=== PATIENT | male | born 1975 | race Caucasian/White ===

== ENCOUNTER 2018-11-11 04:08 | Observation (INO) ==
[2018-11-11 04:50] LABS: Bilirubin,Urine Negative (Negative); Blood,Urine Small (Negative); Clarity,Urine Clear (Clear); Color,Urine Yellow (Yellow); Glucose,Urine (UA) Normal (Normal); Ketones,Urine Negative (Negative); Leukocyte Esterase,Urine Trace (Negative); Nitrite,Urine Negative (Negative); PH,Urine 5.5 pH Units (5.0-8.0); Protein,Urine Negative (Neg-Trace); Specific Gravity,Urine 1.025 (1.010-1.025); Urobilinogen,Urine Normal (Normal)
[2018-11-11 04:56] LABS: Bacteria,Urine None Seen per hpf (None-Few); Hyaline Casts,Urine None Seen per lpf (None-Few); Squamous Epithelial Cell,Urine Few per lpf (None-Few)
[2018-11-11 05:04] LABS: Basophils # 0.1 K/mcL (0.0-0.2); Basophils % 0.4 %; Eosinophils # 0.2 K/mcL (0.0-0.6); Eosinophils % 1.3 %; Hematocrit 46.3 % (37.5-50.1); Hemoglobin 15.4 g/dL (12.9-16.9); Immature Granulocytes % 0.4 % (0-4); Lymphocytes # 1.7 K/mcL (0.6-4.6); Lymphocytes % 11.6 %; Mean Corpuscular HGB Conc 33.3 g/dL (31.6-35.5); Mean Corpuscular Volume 87.2 fL (83.0-100.0); Mean Platelet Volume 10.3 fL (9.4-12.4); Monocytes # 1.5 K/mcL (0.0-1.3); Monocytes % 10.4 %; Neutrophils # 10.8 K/mcL (1.6-8.9); Platelet Count 263 K/mcL (140-400); Red Blood Count 5.31 M/mcL (4.19-5.50); Red Cell Distribution Width 12.2 % (11.5-14.5); Segmented Neutrophils % 75.9 %; White Blood Count 14.2 K/mcL (4.3-11.1)
[2018-11-11 05:23] LABS: Albumin 4.7 g/dL (3.5-5.7); Bilirubin,Direct 0.1 mg/dL (0.0-0.2); Bilirubin,Indirect 0.3 mg/dL (0.0-1.2); Bilirubin,Total 0.4 mg/dL (0.3-1.0); Calcium 9.9 mg/dL (8.6-10.3); Globulin 2.4 g/dL (2.4-3.5); Potassium 3.9 mEq/L (3.5-5.1); Total Protein 7.1 g/dL (6.4-8.9)
[2018-11-11] MEDS ORDERED: Ondansetron 4 MG/2 ML VIAL IVP ONE (05:44)
[2018-11-11] MEDS ORDERED: 0.9 % Sodium Chloride 1,000 ML IV ONE (05:44)
[2018-11-11] MEDS ORDERED: *HR* HYDROmorphone (PF) 1 MG/ML SYRINGE IVP ONE (05:45)
[2018-11-11] MEDS ORDERED: cefTRIAXone 1,000 MG in 0.9 % Sodium Chloride Mini Bag 100 ML IVPB ONE (06:35)
--- NOTE | 2018-11-11 06:39 | Emergency Department Note ---
Disposition Clinical Impression: Pyelonephritis, Kidney stone on left side Acute renal failure Qualifiers: Acute renal failure type: unspecified Qualified Code(s): N17.9 - Acute kidney failure, unspecified Disposition: Admitted As Inpatient Time of Disposition: 07:00 General Adult HPI - General Chief complaint: ED Abdominal Pain Stated complaint: Abd Pain Time Seen by Provider: 11/11/18 06:04 Source: patient Limitations: no limitations Nursing Notes Reviewed: Yes Vital Signs Reviewed: Yes - History of Present Illness HPI Narrative: 43-year-old male presents with abdominal pain. Patient stated he had intermittent back pain and dysuria for a week. He suddenly have a worsening pain around 11 PM last night. The pain was in left abdomen and radiates to back and left testicle. Associate with nausea and vomiting. No chills and a fever. Onset (ago): week(s) (1) Location: abdomen Radiation: back Pain Scale: 8 - Related Data Allergies Allergy/AdvReac Type Severity Reaction Status Date / Time morphine Allergy Hives Verified 11/11/18 05:25 Constitutional: Denies: fever, chills Eyes: Denies: eye pain ENT ED: Denies: ear pain Cardiovascular: Denies: chest pain Respiratory: Denies: cough Gastrointestinal: Reports: abdominal pain, nausea, vomiting Genitourinary: Reports: dysuria Musculoskeletal: Reports: back pain Integumentary: Denies: rash Neurological: Denies: headache Psychiatric: Denies: anxiety Endocrine: Denies: fatigue Hematological/Lymphatic: Denies: easy bleeding Allergic/Immunologic: Denies: facial swelling Past Medical History - Past Medical History Medical history: Reports: hypertension, other - Social History Smoking Status: Never smoker Smokeless Tobacco Status: Yes Alcohol use: Reports: none Drug use: Reports: none Physical Exam - General Limitations: no limitations General appearance: alert, in no apparent distress - Head Head exam: atraumatic - Eye Eye exam: Present: normal appearance - ENT ENT exam: normal exam - Neck Neck exam: Present: normal inspection - Chest Chest inspection: Present: normal inspection - Respiratory Respiratory exam: Present: normal lung sounds bilaterally - Cardiovascular Cardiovascular exam: Present: regular rate - Abdominal Exam Abdominal exam: Present: soft, tenderness Abdominal tenderness: Present: LLQ - Extremities Exam Extremities exam: Present: normal inspection - Back Exam Back exam: Present: normal inspection - Neurological Exam Neurological exam: Present: alert, oriented X3 - Psychiatric Psychiatric exam: Present: normal affect - Skin Skin exam: Present: warm, intact Course Vital Signs Temperature 98.6 F 11/11/18 04:21 Pulse Rate 92 11/11/18 04:21 Respiratory Rate 20 11/11/18 04:21 Blood Pressure 149/98 11/11/18 04:21 O2 Sat by Pulse Oximetry 97 11/11/18 04:21 Temperature 98.5 F 11/11/18 08:08 Pulse Rate 80 11/11/18 08:08 Respiratory Rate 16 11/11/18 08:08 Blood Pressure 140/98 11/11/18 08:08 O2 Sat by Pulse Oximetry 98 11/11/18 08:08 Oxygen Delivery Oxygen Delivery Room Air Medical Decision Making - MDM Narrative Medical decision making narrative: 43-year-old male presents with acute abdominal pain in left side associate with nausea and vomiting. Patient reported dysuria 1 week prior. No chills and a fever. Physical exam left abdomen tender to palpation. Labs white cell 14, creatinine 1.[address] indicated 3 mm of kidney stone in left side, moderate inflammation in perinepheric fat. Impression: Pyelonephritis, acute renal failure and kidney stone. Patient will be admitted to hospital for IV antibiotics and IV fluids. Spoke with the hospitalist. Patient is accepted. Dr. Rosales has seen the patient and agrees the above plan. Spoke with Urologist . He will see the patient in hospital this morning. - Lab Data Lab results reviewed: Yes I reviewed the patient's lab results. Result diagrams: 11/11/18 04:51 11/11/18 04:51 Lab Results 11/11/18 11/11/18 11/11/18 Range/Units 04:18 04:51 04:51 WBC 14.2 H (4.3-11.1) K/mcL RBC 5.31 (4.19-5.50) M/mcL Hgb 15.4 (12.9-16.9) g/dL Hct 46.3 (37.5-50.1) % MCV 87.2 (83.0-100.0) fL MCH 29.0 (28.0-33.3) pg MCHC 33.3 (31.6-35.5) g/dL RDW 12.2 (11.5-14.5) % Plt Count 263 (140-400) K/mcL MPV 10.3 (9.4-12.4) fL Immature Gran % 0.4 (0-4) % Seg Neutrophils % 75.9 % Lymphocytes % 11.6 % Monocytes % 10.4 % Eosinophils % 1.3 % Basophils % 0.4 % Neutrophils # 10.8 H (1.6-8.9) K/mcL Lymphocytes # 1.7 (0.6-4.6) K/mcL Monocytes # 1.5 H (0.0-1.3) K/mcL Eosinophils # 0.2 (0.0-0.6) K/mcL Basophils # 0.1 (0.0-0.2) K/mcL Sodium 137 (136-145) mEq/L Potassium 3.9 (3.5-5.1) mEq/L Chloride 104 (98-107) mEq/L Carbon Dioxide 25 (23-29) mEq/L BUN 24 H (6-20) mg/dL Creatinine 1.77 H (0.70-1.30) mg/dL Est GFR ( Amer) 51 L (> 60) Est GFR (Non-Af Amer) 42 L (> 60) BUN/Creatinine Ratio 14 (6-26) Glucose 119 H (70-105) mg/dL Calculated Osmolality 289 (280-300) Lactic Acid (0.5-2.2) mmol/L Calcium 9.9 (8.6-10.3) mg/dL Total Bilirubin 0.4 (0.3-1.0) mg/dL Direct Bilirubin 0.1 (0.0-0.2) mg/dL Indirect Bilirubin 0.3 (0.0-1.2) mg/dL AST 17 (13-39) Units/L ALT 24 (7-52) Units/L Alkaline Phosphatase 92 (34-104) Units/L Serum Total Protein 7.1 (6.4-8.9) g/dL Albumin 4.7 (3.5-5.7) g/dL Globulin 2.4 (2.4-3.5) g/dL Albumin/Globulin Ratio 2.0 (1.1-2.2) Amylase 66 (29-103) Units/L Lipase 79 (11-82) Units/L Urine Color Yellow (Yellow) Urine Clarity Clear (Clear) Urine pH 5.5 (5.0-8.0) pH Units Ur Specific [place] 1.025 (1.010-1.025) Urine Protein Negative (Neg-Trace) mg/dL Urine Glucose (UA) Normal (Normal) mg/dL Urine Ketones Negative (Negative) mg/dL Urine Blood Small H (Negative) Urine Nitrite Negative (Negative) Urine Bilirubin Negative (Negative) Urine Urobilinogen Normal (Normal) mg/dL Ur Leukocyte Esterase Trace H (Negative) Urine Microscopic RBC 5-15 H (0-3) per hpf Urine Microscopic WBC 3-5 H (0-3) per hpf Ur Squamous Epith Cells Few (None-Few) per lpf Urine Bacteria None Seen (None-Few) per hpf Hyaline Casts None Seen (None-Few) per lpf Ur Culture Indicated? YES A (NO) 11/11/18 Range/Units 07:45 WBC (4.3-11.1) K/mcL RBC (4.19-5.50) M/mcL Hgb (12.9-16.9) g/dL Hct (37.5-50.1) % MCV (83.0-100.0) fL MCH (28.0-33.3) pg MCHC (31.6-35.5) g/dL RDW (11.5-14.5) % Plt Count (140-400) K/mcL MPV (9.4-12.4) fL Immature Gran % (0-4) % Seg Neutrophils % % Lymphocytes % % Monocytes % % Eosinophils % % Basophils % % Neutrophils # (1.6-8.9) K/mcL Lymphocytes # (0.6-4.6) K/mcL Monocytes # (0.0-1.3) K/mcL Eosinophils # (0.0-0.6) K/mcL Basophils # (0.0-0.2) K/mcL Sodium (136-145) mEq/L Potassium (3.5-5.1) mEq/L Chloride (98-107) mEq/L Carbon Dioxide (23-29) mEq/L BUN (6-20) mg/dL Creatinine (0.70-1.30) mg/dL Est GFR ( Amer) (> 60) Est GFR (Non-Af Amer) (> 60) BUN/Creatinine Ratio (6-26) Glucose (70-105) mg/dL Calculated Osmolality (280-300) Lactic Acid 0.8 (0.5-2.2) mmol/L Calcium (8.6-10.3) mg/dL Total Bilirubin (0.3-1.0) mg/dL Direct Bilirubin (0.0-0.2) mg/dL Indirect Bilirubin (0.0-1.2) mg/dL AST (13-39) Units/L ALT (7-52) Units/L Alkaline Phosphatase (34-104) Units/L Serum Total Protein (6.4-8.9) g/dL Albumin (3.5-5.7) g/dL Globulin (2.4-3.5) g/dL Albumin/Globulin Ratio (1.1-2.2) Amylase (29-103) Units/L Lipase (11-82) Units/L Urine Color (Yellow) Urine Clarity (Clear) Urine pH (5.0-8.0) pH Units Ur Specific T[place] (1.010-1.025) Urine Protein (Neg-Trace) mg/dL Urine Glucose (UA) (Normal) mg/dL Urine Ketones (Negative) mg/dL Urine Blood (Negative) Urine Nitrite (Negative) Urine Bilirubin (Negative) Urine Urobilinogen (Normal) mg/dL Ur Leukocyte Esterase (Negative) Urine Microscopic RBC (0-3) per hpf Urine Microscopic WBC (0-3) per hpf Ur Squamous Epith Cells (None-Few) per lpf Urine Bacteria (None-Few) per hpf Hyaline Casts (None-Few) per lpf Ur Culture Indicated? (NO) - Radiology Data Radiology results reviewed: Yes I reviewed the patient's radiology results. FINDINGS: Lower Chest: Normal aeration of the lung bases. Heart is normal in size. No pericardial effusion. Organs: Liver, pancreas, spleen, bilateral adrenal glands are unremarkable. 3 mm obstructive stone in the distal left ureter near the ureterovesical junction leads to mild left hydronephrosis. Moderate inflammation of the left perinephric fat. Additional punctate stone in the left kidney. No right nephrolithiasis or hydronephrosis. GI/Bowel: Stomach, small and large bowel loops are grossly unremarkable. The appendix is normal. Pelvis: Urinary bladder is unremarkable. No stones in the urinary bladder. No lymphadenopathy. No soft tissue masses or abnormal fluid collections. Peritoneum/Retroperitoneum: No free intraperitoneal fluid or air. No abdominal aortic aneurysm. No retroperitoneal lymphadenopathy. Bones/Soft Tissues: No lytic or blastic lesions in all visualized osseous structures. Very small left inguinal hernia contains non inflamed fat. CT/CT abd pelvis wo no iv no oral IMPRESSION: 3 mm obstructive stone in the distal left ureter near the ureterovesical junction leads to mild left hydronephrosis. Moderate inflammation of the left perinephric fat. Additional punctate stone in the left kidney. D/ / Cristel Olivares MD / Cristel Olivares MD Interpreting Provider: Cristel Olivares MD
[2018-11-11] MEDS ORDERED: Naloxone 0.4 MG/ML INJ IVP PRN ×2 (07:35→17:27)
[2018-11-11] MEDS ORDERED: traMADol 50 MG TABLET PO PRN ×2 (07:35→17:27)
[2018-11-11] MEDS ORDERED: 0.9 % Sodium Chloride 1,000 ML IVC ONE (07:37)
[2018-11-11] MEDS ORDERED: D5% in Water 1,000 ML IVC PRN ×2 (07:39→17:27)
[2018-11-11] MEDS ORDERED: *HR* Dextrose 50 % in Water (Syg) 50 ML SYRINGE IVP PRN ×2 (07:39→17:27)
[2018-11-11] MEDS ORDERED: Dextrose Gel 15 GM/37.5 ML TUBE PO PRN ×4 (07:39→17:27)
[2018-11-11] MEDS ORDERED: D5% in 0.45% NACL 1,000 ML IVC SCH (07:45)
--- NOTE | 2018-11-11 08:25 | Internal Med History&Physical ---
Date of Encounter: 11/11/18 Time of Encounter: 08:20 Internal Medicine - H&P: HPI Chief complaint: back pain Admitted From: Home Plans for Post Hospital Care: Home History of present illness: Mr. Maciel is a 43 year old male PMH of Depression, contusion on August 2018 associated with compression fracture of T9-T10, HTN, Chronic pancreatitis and G6PD deficiency. Patient presented to the ED due to left lower back pain. Re ports for the past 8 days he has been feeling cold, clammy and weak. He felt like he had a UTI, because he has decreased urinary output, pain with urination and the urge to urinate with decreased urinary output. Stated that for the past couple of days he started having left lower quadrant abdominal pain radiating to his left testicle, Associated with nausea. And last night at around 4am he started vomiting. Report 2 episodes of non-bilious, non-bloody vomiting and decided to come to the ED. Patient was found to have an PARVIZ, UTI and obstructive uropathy. Admitted to the hospitalist team for management, and coordination of care. Past Med Surg Social Fam HX - Past Medical History Medical history: hypertension, other Additional medical history: pancreatitis - Social History Smoking Status: Never smoker Smokeless Tobacco Status: Yes Alcohol use: none Drug use: none Internal Medicine - H&P: Meds Allergy/AdvReac Type Severity Reaction Status Date / Time morphine Allergy Hives Verified 11/11/18 05:25 All Systems PM: A 10-system review of systems was performed and is negative for pertinent findings except as documented above in the HPI. - Constitutional Constitutional: chills, fatigue, fever(s) (subjective), malaise, weakness - EENT Eyes: no change in vision Nose, mouth and throat: no dental pain, no dry mouth, no mouth pain - Cardiovascular Cardiovascular ROS IM: no chest pain, no edema, no orthopnea, no palpitations, no paroxysmal nocturnal dyspnea - Respiratory Respiratory: no cough, no wheezing - Gastrointestinal Gastrointestinal: abdominal pain, nausea, vomiting - Genitourinary Genitourinary ROS male: dysuria, urinary frequency, urinary hesitancy, urinary urgency, no urinary incontinence - Musculoskeletal Musculoskeletal ROS IM: no atrophy, no numbness - Integumentary Integumentary IM: no erythema - Neurological Neurological ROS: no headache(s), no lack of coordination - Psychiatric Psychiatric: no anxiety, no hopelessness, no irritability - Endocrine Endocrine IM: no cold intolerance, no excessive sweating - Hematologic/Lymphatic Hematologic/Lymphatic: no lymphadenopathy - Allergic/Immunologic Allergic/Immunologic: no GI upset with certain foods - Constitutional Vitals: Temp Pulse Resp BP Pulse Ox 98.5 F 80 16 140/98 98 11/11/18 08:08 11/11/18 08:08 11/11/18 08:08 11/11/18 08:08 11/11/18 08:08 Exam: Vitals: Reviewed General: Alert and oriented x4. In mild distress due to back pain and testicular pain. Skin: Normal color, no rash, no lesions. HEENT: EOM, pupils equal, round and reactive. Cardiovascular: RRR, normal S1 & S2, no rubs, murmurs or gallops. Lungs: CTA b/l, no wheezes or crackles. Abdomen: Soft, non-tender, no rigidity. Extremities: No deformity, no edema or tenderness, no joint swelling or clubbing. Neurological: Normal cognition and motor skills. Rest of the physical exam is non contributory Internal Med - H&P Results - Labs CBC & Chem 7: 11/11/18 04:51 11/11/18 04:51 Labs: Short CBC 11/11/18 Range/Units 04:51 WBC 14.2 H (4.3-11.1) K/mcL Hgb 15.4 (12.9-16.9) g/dL Hct 46.3 (37.5-50.1) % Plt Count 263 (140-400) K/mcL Neutrophils # 10.8 H (1.6-8.9) K/mcL BMP 11/11/18 04:51 Sodium 137 Potassium 3.9 Chloride 104 Carbon Dioxide 25 BUN 24 H Creatinine 1.77 H Glucose 119 H Calcium 9.9 Liver Function 11/11/18 Range/Units 04:51 Total Bilirubin 0.4 (0.3-1.0) mg/dL Direct Bilirubin 0.1 (0.0-0.2) mg/dL AST 17 (13-39) Units/L ALT 24 (7-52) Units/L Alkaline Phosphatase 92 (34-104) Units/L Albumin 4.7 (3.5-5.7) g/dL Urine 11/11/18 Range/Units 04:18 Urine Color Yellow (Yellow) Urine Clarity Clear (Clear) Urine pH 5.5 (5.0-8.0) pH Units Ur Specific [place] 1.025 (1.010-1.025) Urine Protein Negative (Neg-Trace) mg/dL Urine Glucose (UA) Normal (Normal) mg/dL - Impressions ITS Impressions Abdomen/Pelvis CT 11/11/18 05:44 IMPRESSION: 3 mm obstructive stone in the distal left ureter near the ureterovesical junction leads to mild left hydronephrosis. Moderate inflammation of the left perinephric fat. Additional punctate stone in the left kidney. D/ / Cristel Olivares MD / Cristel Olivares MD Interpreting Provider: Cristel Olivares MD - Assessment and Plan (1) Kidney stone on left side Current Visit: Yes Status: Acute Assessment and plan: CT/CT abd pelvis wo no iv no oral IMPRESSION: 3 mm obstructive stone in the distal left ureter near the ureterovesical junction leads to mild left hydronephrosis. Moderate inflammation of the left perinephric fat. Additional punctate stone in the left kidney. Plan - urology consulted, recommendations appreciated - started on tamsulosin and cyclobenzaprine - Gentle IV hydration - NPO pending urology evaluation (2) PARVIZ (acute kidney injury) Current Visit: Yes Status: Acute Assessment and plan: lilkely due to 3 mm obstructive stone in the distal left ureter near the ureterovesical junction leads to mild left hydronephrosis. Plan of care as above. (3) HTN (hypertension) Current Visit: Yes Status: Chronic Assessment and plan: will resume patient's home medications when verified by the pharmacy Qualifiers: Hypertension type: unspecified Qualified Code(s): I10 - Essential (primary) hypertension (4) G6PD deficiency Current Visit: Yes Status: Chronic (5) Pyelonephritis Current Visit: Yes Status: Acute Assessment and plan: patient started on empiric IV antibiotics. Blood culture ordered. (6) UTI (urinary tract infection) Current Visit: Yes Status: Acute Assessment and plan: plan of care as above. Qualifiers: Urinary tract infection type: acute pyelonephritis Qualified Code(s): N10 - Acute pyelonephritis (7) DVT prophylaxis Current Visit: Yes Status: Acute Assessment and plan: intermittent pneumatic compression for DVT prophylaxis. - Time Spent With Patient Total time spent is greater than 50% in coordination of care (as documented) at patient's floor/unit and/or counseling patient: Greater than 35 minutes (50)
--- NOTE | 2018-11-11 10:12 | Urology - Consult Note ---
<Jaimie Gamino N - Last Filed: 11/11/18 10:53> Date of Encounter: 11/11/18 Time of Encounter: 09:50 - Assessment and Plan (1) Ureteral stone with hydronephrosis Current Visit: Yes Status: Acute Assessment and plan: Patient is a 43-year-old male who presents with a 3 mm left distal ureteral stone and hydronephrosis. Vital signs are currently stable and afebrile. Urine appears negative, but culture has been collected in the emergency department. White blood cell count elevated to 14.2. Serum creatinine elevated to 1.77. Patient has been placed on IV Rocephin. We discussed surgical risks and benefits, and patient verbalized understanding. He should signed consent, and he is prepared undergo a left ureteroscopic stone extraction with or without holmium laser lithotripsy, basket retrieval and left ureteral stent placement later this afternoon with . Patient will remain nothing by mouth. (2) PARVIZ (acute kidney injury) Current Visit: Yes Status: Acute Assessment and plan: Patient is a 43-year-old male who presents with acute kidney injury. Patient has an obstructing left distal ureteral stone with mild hydronephrosis. Serum creatinine is 1.77, but there are no prior renal function labs for comparison. Anticipate renal function improvement postoperatively. Urology CN:HPI Consult date: 11/11/18 Reason for consult Urology: Hydronephrosis (left ureteral stone) Requesting physician: Jarrell May History of present illness: Patient is a 43-year-old male who presents with a 3 mm left distal ureteral stone and hydronephrosis. Patient presented to the emergency department with an 8 day history of intermittent left flank pain, radiating to the left groin and testicle. Patient reports pain acutely worsened over the last 2 days and was accompanied with nausea and vomiting. Patient admits to intermittent chills and diaphoresis, but he denies any known fever or gross hematuria. Patient underwent a CT of the abdomen and pelvis revealing a 3 mm left distal ureteral stone and hydronephrosis. Patient reports this is his first renal stone. Patient has a significant family history of renal stones through his father. On my evaluation, patient is sitting upright in bed in no apparent distress, and he states pain is well-controlled. Past Med Surg Social Fam HX - Past Medical History Medical history: hypertension, other Additional medical history: pancreatitis - Past Surgical History Surgical History: non-contributory - Social History Smoking Status: Never smoker Smokeless Tobacco Status: Yes Alcohol use: none Drug use: none - Family History Father Hx Family Genitourinary Disorders: Yes (renal stones ) Medications and Allergies Cyclobenzaprine HCl 5 mg PO TID PRN 11/11/18 [History] HYDROcodone/Acet 7.5/325 mg [[place] 7.5-325 mg] 1 tab PO BID PRN 11/11/18 [History] Ibuprofen [Motrin] 800 mg PO DAILY PRN 11/11/18 [History] LORazepam [Ativan] 1 mg PO BID PRN 11/11/18 [History] Metoprolol [Lopressor] 25 mg PO BID 11/11/18 [History] Testosterone 1 appl TP DAILY 11/11/18 [History] Valacyclovir HCl [Valtrex] 2,000 mg PO BID PRN 11/11/18 [History] Allergy/AdvReac Type Severity Reaction Status Date / Time morphine Allergy Hives Verified 11/11/18 19:54 Review of Systems - Constitutional chills, no fever(s), no weakness - EENT Nose, mouth and throat: no dizziness, no headache(s) - Cardiovascular no chest pain, no diaphoresis, no dyspnea - Respiratory no cough, no dyspnea - Gastrointestinal abdominal pain, nausea, vomiting - Genitourinary difficulty urinating, dysuria, flank pain, testicular pain, urinary hesitancy, urinary urgency, no change in urinary stream, no hematuria, no urinary frequency, no urinary incontinence - Musculoskeletal back pain, no muscle weakness - Integumentary no erythema, no rash - Neurological no confusion, no syncope - Psychiatric no anxiety, no confusion - Hematologic/Lymphatic no easy bleeding, no easy bruising - Allergic/Immunologic no throat swelling, no wheezing Exam Initial Vital Signs Temp Pulse Resp BP Pulse Ox 98.6 F 92 20 149/98 97 11/11/18 04:21 11/11/18 04:21 11/11/18 04:21 11/11/18 04:21 11/11/18 04:21 - General physical appearance Present: well developed, no distress, no pain - Eyes Present: PERRL, normal ocular movement - ENT Present: normal nares, no hearing loss, no congestion - Neck Present: no masses, trachea midline, no lymphadenopathy - Respiratory Present: normal respiratory effort - Cardiovascular Cardiovascular exam IM: RRR - Abdomen Abdomen: Present: soft, non tender. Absent: distended - Genitourinary other (no CVAT) - Integumentary Present: no rash, no abnormal pigmentation - Neurologic Present: normal coordination - Musculoskeletal Present: other (normal posture ) Urology Results - Labs 11/11/18 04:51 11/11/18 04:51 Abnormal lab results WBC 14.2 K/mcL (4.3-11.1) H 11/11/18 04:51 Neutrophils # 10.8 K/mcL (1.6-8.9) H 11/11/18 04:51 Monocytes # 1.5 K/mcL (0.0-1.3) H 11/11/18 04:51 BUN 24 mg/dL (6-20) H 11/11/18 04:51 Creatinine 1.77 mg/dL (0.70-1.30) H 11/11/18 04:51 Est GFR ( Amer) 51 (> 60) L 11/11/18 04:51 Est GFR (Non-Af Amer) 42 (> 60) L 11/11/18 04:51 Glucose 119 mg/dL (70-105) H 11/11/18 04:51 Urine Blood Small (Negative) H 11/11/18 04:18 Ur Leukocyte Esterase Trace (Negative) H 11/11/18 04:18 Urine Microscopic RBC 5-15 per hpf (0-3) H 11/11/18 04:18 Urine Microscopic WBC 3-5 per hpf (0-3) H 11/11/18 04:18 Ur Culture Indicated? YES (NO) A 11/11/18 04:18 Diabetes panel 11/11/18 Range/Units 04:51 Sodium 137 (136-145) mEq/L Potassium 3.9 (3.5-5.1) mEq/L Chloride 104 (98-107) mEq/L Carbon Dioxide 25 (23-29) mEq/L BUN 24 H (6-20) mg/dL Creatinine 1.77 H (0.70-1.30) mg/dL Glucose 119 H (70-105) mg/dL Calcium 9.9 (8.6-10.3) mg/dL AST 17 (13-39) Units/L ALT 24 (7-52) Units/L Alkaline Phosphatase 92 (34-104) Units/L Albumin 4.7 (3.5-5.7) g/dL Calcium panel 11/11/18 Range/Units 04:51 Calcium 9.9 (8.6-10.3) mg/dL Albumin 4.7 (3.5-5.7) g/dL Pituitary panel 11/11/18 Range/Units 04:51 Sodium 137 (136-145) mEq/L Potassium 3.9 (3.5-5.1) mEq/L Chloride 104 (98-107) mEq/L Carbon Dioxide 25 (23-29) mEq/L BUN 24 H (6-20) mg/dL Creatinine 1.77 H (0.70-1.30) mg/dL Glucose 119 H (70-105) mg/dL Calcium 9.9 (8.6-10.3) mg/dL Adrenal panel 11/11/18 Range/Units 04:51 Sodium 137 (136-145) mEq/L Potassium 3.9 (3.5-5.1) mEq/L Chloride 104 (98-107) mEq/L Carbon Dioxide 25 (23-29) mEq/L BUN 24 H (6-20) mg/dL Creatinine 1.77 H (0.70-1.30) mg/dL Glucose 119 H (70-105) mg/dL Calcium 9.9 (8.6-10.3) mg/dL Total Bilirubin 0.4 (0.3-1.0) mg/dL AST 17 (13-39) Units/L ALT 24 (7-52) Units/L Alkaline Phosphatase 92 (34-104) Units/L Albumin 4.7 (3.5-5.7) g/dL All other labs normal. - Imaging CT scan - abdomen: report reviewed, image reviewed CT scan - pelvis: report reviewed, image reviewed Consult Discharge Plan - Plan Referrals: Diogo Gregg CNP [Primary Care Provider] - <Esteban Johnson - Last Filed: 11/12/18 07:53> Date of Encounter: 11/12/18 - Assessment and Plan (1) Ureteral stone with hydronephrosis Current Visit: Yes Status: Acute Assessment and plan: Patient seen and examined in the holding room prior to surgery. Agree with physician assistants assessment and plan. Patient was comfortable proceeding with the ureteroscopic stone extraction. He understood the indications for the procedure. We will keep the patient admitted overnight after the stone extraction and verify that his renal function and symptoms improve in the morning Exam Initial Vital Signs Temp Pulse Resp BP Pulse Ox 98.6 F 92 20 149/98 97 11/11/18 04:21 11/11/18 04:21 11/11/18 04:21 11/11/18 04:21 11/11/18 04:21 Urology Results - Labs 11/12/18 05:02 11/12/18 05:02 Abnormal lab results WBC 11.2 K/mcL (4.3-11.1) H 11/12/18 05:02 Neutrophils # 9.6 K/mcL (1.6-8.9) H 11/12/18 05:02 Monocytes # 1.5 K/mcL (0.0-1.3) H 11/11/18 04:51 Sodium 135 mEq/L (136-145) L 11/12/18 05:02 Carbon Dioxide 22 mEq/L (23-29) L 11/12/18 05:02 BUN 24 mg/dL (6-20) H 11/11/18 04:51 Creatinine 1.39 mg/dL (0.70-1.30) H 11/12/18 05:02 Est GFR ( Amer) 51 (> 60) L 11/11/18 04:51 Est GFR (Non-Af Amer) 56 (> 60) L 11/12/18 05:02 Glucose 153 mg/dL (70-105) H 11/12/18 05:02 POC Glucose 114 mg/dL (70-99) H 11/11/18 17:55 Urine Blood Small (Negative) H 11/11/18 04:18 Ur Leukocyte Esterase Trace (Negative) H 11/11/18 04:18 Urine Microscopic RBC 5-15 per hpf (0-3) H 11/11/18 04:18 Urine Microscopic WBC 3-5 per hpf (0-3) H 11/11/18 04:18 Ur Culture Indicated? YES (NO) A 11/11/18 04:18 Diabetes panel 11/12/18 Range/Units 05:02 Sodium 135 L (136-145) mEq/L Potassium 4.3 (3.5-5.1) mEq/L Chloride 105 (98-107) mEq/L Carbon Dioxide 22 L (23-29) mEq/L BUN 17 (6-20) mg/dL Creatinine 1.39 H (0.70-1.30) mg/dL Glucose 153 H (70-105) mg/dL Calcium 9.0 (8.6-10.3) mg/dL Calcium panel 11/12/18 Range/Units 05:02 Calcium 9.0 (8.6-10.3) mg/dL Phosphorus 3.7 (2.7-4.5) mg/dL Pituitary panel 11/12/18 Range/Units 05:02 Sodium 135 L (136-145) mEq/L Potassium 4.3 (3.5-5.1) mEq/L Chloride 105 (98-107) mEq/L Carbon Dioxide 22 L (23-29) mEq/L BUN 17 (6-20) mg/dL Creatinine 1.39 H (0.70-1.30) mg/dL Glucose 153 H (70-105) mg/dL Calcium 9.0 (8.6-10.3) mg/dL Adrenal panel 11/12/18 Range/Units 05:02 Sodium 135 L (136-145) mEq/L Potassium 4.3 (3.5-5.1) mEq/L Chloride 105 (98-107) mEq/L Carbon Dioxide 22 L (23-29) mEq/L BUN 17 (6-20) mg/dL Creatinine 1.39 H (0.70-1.30) mg/dL Glucose 153 H (70-105) mg/dL Calcium 9.0 (8.6-10.3) mg/dL All other labs normal.
[2018-11-11] MEDS ORDERED: Ondansetron 4 MG/2 ML VIAL IVP PRN ×2 (11:03→17:27)
[2018-11-11] MEDS ORDERED: Insulin LISPRO 300 UNITS/3 ML VIAL SQ SCH (12:00)
--- NOTE | 2018-11-11 15:24 | Anesthesia Evaluation PreOp ---
Date of Encounter: 11/11/18 Time of Encounter: 15:21 - Past History Planned Operation: Left USE Cardiac History: HTN Pulmonary History: Denies Any Significant HX ANIMAL KILLER History: Denies Any Significant HX Other Medical History: Other (pancreatitis) Anesthesia History: No Prior Anesthetic Complications, Past Anesthesia (GB) Alcohol Use: occasionally Drug use: none Medications and Allergies DULoxetine [Cymbalta] 30 mg PO BID 11/11/18 [History] LORazepam [Ativan] 1 mg PO BID PRN 11/11/18 [History] Metoprolol [Lopressor] 25 mg PO BID 11/11/18 [History] Testosterone [Androderm] 1 each TD DAILY 11/11/18 [History] Allergy/AdvReac Type Severity Reaction Status Date / Time morphine Allergy Hives Verified 11/11/18 05:25 - Meds/Allergy Pre-op Review Medications Reviewed: Yes Allergies Reviewed: Yes Anesthesia Results - Labs 11/11/18 04:51 11/11/18 04:51 Anesthesia Exam Vital Signs/O2 Sat, Most Current Temp Pulse Resp BP Pulse Ox 98.7 F 72 16 135/90 94 11/11/18 15:15 11/11/18 15:15 11/11/18 15:15 11/11/18 15:15 11/11/18 15:15 NPO (# of Hours): > 8 hrs Pain Scale: 0 Pain Scale Used: Numeric (1 - 10) - HEENT Pupil (Motor): Pupils equal, EOMI Mallampati: II Teeth: Normal Oral Opening: Greater than 3 - ANIMAL KILLER LOC: Oriented ANIMAL KILLER Motor: Normal RUE, Normal LUE, Normal RLE, Normal LLE, Normal Face ANIMAL KILLER Sensory: Normal: RUE, LUE, RLE, LLE, Face - Cardiac Rhythm: Regular Murmur: None JVD: No Carotid Bruit: No - Pulmonary Breath Sounds: bilateral Clear Respiratory Effort: Symmetrical Anesthesia Assess/Plan ASA Score: 2 Level of consciousness: Cooperative Anesthetic Plan: General Autologous Blood: Yes Monitoring Plan: Standard Monitors Recovery Plan: PACU
[2018-11-11] MEDS ORDERED: Isovue-300 50 ML VIAL ONE (15:41)
[2018-11-11] MEDS ORDERED: *HR* FentaNYL (PF) 100 MCG/2 ML VIAL ONE ×2 (15:43→16:30)
[2018-11-11] MEDS ORDERED: Lidocaine -MPF 2% 2 ML VIAL ONE ×2 (15:43→16:17)
[2018-11-11] MEDS ORDERED: *HR* Propofol 200 MG/20 ML VIAL IVP ONE ×2 (15:43→16:17)
[2018-11-11] MEDS ORDERED: Dexamethasone 4 MG/ML VIAL ONE ×2 (15:44→16:17)
[2018-11-11] MEDS ORDERED: Ondansetron 4 MG/2 ML VIAL ONE ×2 (15:44→16:17)
[2018-11-11] MEDS ORDERED: *HR* Midazolam HCl 5 MG/5 ML VIAL IVP ONE (15:45)
[2018-11-11] MEDS ORDERED: *HR* Rocuronium Bromide 50 MG/5 ML VIAL ONE (16:17)
--- NOTE | 2018-11-11 17:03 | Operative Note ---
Date of procedure: 11/11/18 Pre-op diagnosis: left ureteral stone Post-op diagnosis: same Procedure: left ureteroscopic stone extraction left JJ stent placement Anesthesia: GETA Surgeon: Esteban Johnson Was there an desk assistant present: No Estimated blood loss (cc): 0 Specimen: stone for analysis Condition: stable Disposition: PACU Procedure in Detail: PROCEDURE IN DETAIL: Patient was taken back to the operating room, positioned supine on the operating table. Anesthesia was applied without complication. They were moved into dorsal lithotomy. Careful attention was maintained to cushion all pressure points for patient's safety. They were prepped and draped in sterile fashion. Time-out was performed with the proper patient and procedure. A 17.5-[place] rigid cystoscope was inserted into the bladder without difficulty. Systematic examination of bladder revealed no abnormalities. The left ureteral orifice was cannulated using a 5-[place] ureteral Catheter and a zip wire was passed under fluoroscopy. An 8-10 dilator was then placed over the zip wire to passively dilate the ureteral orifice. A semi-rigid ureteroscope was carefully inserted into the bladder and guided into the ureteral oriface. At that point, the stone was quite impacted but I was able to maniulate its position and basket extract the stone with a 1.9 tipless basket All stone in the ureter was removed. A 4.8 x 26 ureteral stent was placed over the zip wire under fluoroscopy without complication. the stone was sent for stone analysis. The string was left attached to the stent and secured to the patient for easy removal in approximately 72 hours
[2018-11-11] MEDS ORDERED: *HR* LORazepam 1 MG TABLET PO PRN (17:27)
[2018-11-11] MEDS ORDERED: Hyoscyamine SL 0.125 MG TAB.SUBL SL PRN (17:27)
[2018-11-11] MEDS: Insulin LISPRO 300 UNITS/3 ML VIAL SQ SCH ×2 (17:58→23:00)
[2018-11-11] MEDS: *HR* OxyCODONE/APAP 5/325 TABLET PO PRN ×2 (19:02→23:02)
--- NOTE | 2018-11-11 21:06 | Anesthesia Evaluation Post Op ---
Date of Encounter: 11/11/18 Time of Encounter: 17:10 - Vital Signs Vital Signs: Vital Signs/O2 Sat, Most Current Temp Pulse Resp BP Pulse Ox 97.8 F 88 18 136/96 97 11/11/18 18:57 11/11/18 18:57 11/11/18 18:57 11/11/18 18:57 11/11/18 18:57 - Lungs Lungs: Clear Ascult./Percussion - Airway Airway: Non-obstructed - Cardiovascular Baseline Rhythm - Mental Status Mental Status: Baseline Status - Pain Pain Scale: 0 - Nausea Vomiting Nausea Vomiting: Not Present - Hydration Hydration: Tolerates oral liquids - Discharge PostOp Status: Transfer Patient to floor
[2018-11-12] MEDS: *HR* OxyCODONE/APAP 5/325 TABLET PO PRN ×2 (03:07→09:12)
[2018-11-12 05:26] LABS: Basophils % 0.1 %; Hematocrit 42.9 % (37.5-50.1); Hemoglobin 14.1 g/dL (12.9-16.9); Immature Granulocytes % 0.4 % (0-4); Lymphocytes # 0.9 K/mcL (0.6-4.6); Lymphocytes % 8.2 %; Mean Corpuscular HGB Conc 32.9 g/dL (31.6-35.5); Mean Corpuscular Hemoglobin 28.9 pg (28.0-33.3); Mean Corpuscular Volume 87.9 fL (83.0-100.0); Mean Platelet Volume 10.6 fL (9.4-12.4); Monocytes # 0.6 K/mcL (0.0-1.3); Monocytes % 5.3 %; Neutrophils # 9.6 K/mcL (1.6-8.9); Platelet Count 218 K/mcL (140-400); Red Blood Count 4.88 M/mcL (4.19-5.50); White Blood Count 11.2 K/mcL (4.3-11.1)
[2018-11-12 05:49] LABS: BUN/Creatinine Ratio 12 (6-26); Blood Urea Nitrogen 17 mg/dL (6-20); Carbon Dioxide 22 mEq/L (23-29); Chloride 105 mEq/L (98-107); Glucose 153 mg/dL (70-105); Magnesium 1.8 mg/dL (1.6-2.6); Osmolality,Calculated 285 (280-300); Phosphorous 3.7 mg/dL (2.7-4.5); Potassium 4.3 mEq/L (3.5-5.1); Sodium 135 mEq/L (136-145); eGFR For African Americans > 60 (> 60); eGFR For Non-African Americans 56 (> 60)
--- NOTE | 2018-11-12 08:44 | Urology Progress Note ---
<Jaimie Gamino N - Last Filed: 11/12/18 08:40> Date of Encounter: 11/12/18 Time of Encounter: 08:10 - Assessment and Plan (1) Ureteral stone with hydronephrosis Status: Acute Assessment and plan: Patient is a 43-year-old male who presents one day status post left ureteroscopic stone extraction and left ureteral stent placement. Vital signs are stable and afebrile. Patient is recovering very well postoperatively. Renal function is much improved today. We discussed postoperative expectations with indwelling ureteral stent. Patient is aware he will need to self remove ureteral stent on postoperative day #3. Patient is okay to be discharged from urologic standpoint. Recommend 2-3 days of pain medicine as well as medication for bladder spasm such as oxybutynin or Levsin. Patient will follow-up with postoperatively within 2-4 weeks of discharge. (2) PARVIZ (acute kidney injury) Status: Acute Progress Note Subjective: no new complaints, feels better Narrative: POD #1. Patient seen and examined sitting upright in bed in no apparent distress. Patient is tolerating normal diet without nausea or vomiting. P atient is voiding well without difficulty. Patient admits to some stent discomfort, but overall he feels much improved. Objective Initial Vital Signs Temp Pulse Resp BP Pulse Ox 98.6 F 92 20 149/98 97 11/11/18 04:21 11/11/18 04:21 11/11/18 04:21 11/11/18 04:21 11/11/18 04:21 - General physical appearance Present: well developed, no distress, no pain - Respiratory Present: normal expansion, normal respiratory effort - Abdomen Present: soft, non tender. Absent: distended - Integumentary Present: no rash, no abnormal pigmentation - Musculoskeletal Present: normal posture - Psychiatric Present: oriented to time, oriented to person, oriented to place, speech is normal, memory intact - Labs 11/12/18 05:02 11/12/18 05:02 Diabetes panel 11/12/18 Range/Units 05:02 Sodium 135 L (136-145) mEq/L Potassium 4.3 (3.5-5.1) mEq/L Chloride 105 (98-107) mEq/L Carbon Dioxide 22 L (23-29) mEq/L BUN 17 (6-20) mg/dL Creatinine 1.39 H (0.70-1.30) mg/dL Glucose 153 H (70-105) mg/dL Calcium 9.0 (8.6-10.3) mg/dL Calcium panel 11/12/18 Range/Units 05:02 Calcium 9.0 (8.6-10.3) mg/dL Phosphorus 3.7 (2.7-4.5) mg/dL Pituitary panel 11/12/18 Range/Units 05:02 Sodium 135 L (136-145) mEq/L Potassium 4.3 (3.5-5.1) mEq/L Chloride 105 (98-107) mEq/L Carbon Dioxide 22 L (23-29) mEq/L BUN 17 (6-20) mg/dL Creatinine 1.39 H (0.70-1.30) mg/dL Glucose 153 H (70-105) mg/dL Calcium 9.0 (8.6-10.3) mg/dL Adrenal panel 11/12/18 Range/Units 05:02 Sodium 135 L (136-145) mEq/L Potassium 4.3 (3.5-5.1) mEq/L Chloride 105 (98-107) mEq/L Carbon Dioxide 22 L (23-29) mEq/L BUN 17 (6-20) mg/dL Creatinine 1.39 H (0.70-1.30) mg/dL Glucose 153 H (70-105) mg/dL Calcium 9.0 (8.6-10.3) mg/dL - VTE Documentation of Mechanical Device: Intermittent pneumatic compression device Consult Discharge Plan - Plan Instructions: Hydrocodone/Acetaminophen (By mouth), Hyoscyamine (By mouth), Cefdinir (By mouth) Referrals: Diogo Gregg CNP [Primary Care Provider] - 11/19/18 8:00 am Esteban Johnson MD [Partnered Physician] - (An appointment has been requested. The office will contact you at home to schedule an appointment. ) Prescriptions: Hyoscyamine SL [Levsin Sl] 0.125 mg SL Q4HR PRN 4 Days #15 tab.subl PRN Reason: Spasms HYDROcodone/Acet 7.5/325 mg [[place] 7.5-325 mg] 1 tab PO BID PRN 5 Days #10 tablet PRN Reason: Pain Cefdinir [Omnicef] 300 mg PO BID 3 Days #6 capsule <Esteban Johnson - Last Filed: 11/14/18 08:01> Date of Encounter: 11/14/18 - Assessment and Plan (1) Ureteral stone with hydronephrosis Status: Acute Assessment and plan: agree with assessment and plan. I did no personally evaluate the patient on this day Objective Initial Vital Signs Temp Pulse Resp BP Pulse Ox 98.6 F 92 20 149/98 97 11/11/18 04:21 11/11/18 04:21 11/11/18 04:21 11/11/18 04:21 11/11/18 04:21 - Labs 11/12/18 05:02 11/12/18 05:02
[2018-11-12] MEDS ORDERED: cefTRIAXone 1,000 MG in Water for inj. (sterile) 10 ML IVP SCH ×2 (09:00)
[2018-11-12 11:16] VITALS: BP 138/84
--- NOTE | 2018-11-12 11:38 | Discharge Summary ---
- NOTES TO OUTPATIENT PROVIDER Notes to Outpatient Provider: Have a repeat BMP within a week of hospital dischage. creat 1.39 at dc from 1.77 Orders not resulted at time of discharge: Pending orders 11/11/18 04:18 Culture,Urine [RM] Stat 11/11/18 07:45 Culture,Blood [BC] Stat 11/11/18 16:12 XR KUB [XR] Routine 11/11/18 16:45 Surgical Pathology [PTH] Routine Date of Encounter: 11/12/18 Time of Encounter: 11:33 - Discharge Diagnosis (1) Kidney stone on left side Priority: Primary Status: Resolved (2) PARVIZ (acute kidney injury) Priority: Secondary Status: Resolved (3) HTN (hypertension) Priority: Secondary Status: Chronic Qualifiers: Hypertension type: unspecified Qualified Code(s): I10 - Essential (primary) hypertension (4) G6PD deficiency Priority: Secondary Status: Chronic (5) Pyelonephritis Priority: Secondary Status: Suspected (6) UTI (urinary tract infection) Priority: Secondary Status: Acute Qualifiers: Urinary tract infection type: acute pyelonephritis Qualified Code(s): N10 - Acute pyelonephritis (7) DVT prophylaxis Priority: Secondary Status: Acute Hospital course: Mr. Maciel is a 43 year old male PMH of Depression, contusion on August 2018 associated with compression fracture of T9-T10, HTN, Chronic pancreatitis and G6PD deficiency. Patient presented to the ED due to left lower back pain. Patient admitted to the hospital due to PARVIZ, UTI and obstructive uropathy CT/CT abd pelvis wo no iv no oral IMPRESSION: 3 mm obstructive stone in the distal left ureter near the ureterovesical junction leads to mild left hydronephrosis. Moderate inflammation of the left perinephric fat. Urology consulted. Patient underwent left ureteroscopic stone extraction, left JJ stent placement. Patient clinically stable to be discharged home, recommended to follow-up with your neurologist within a week of hospital discharge. - Time Spent with Patient Total time spent providing and/or coordinating discharge services: Time spent: Greater than 30 minutes (35) - Discharge Medications Prescriptions: New Hyoscyamine SL [Levsin Sl] 0.125 mg SL Q4HR PRN 4 Days #15 tab.subl PRN Reason: Spasms Cefdinir [Omnicef] 300 mg PO BID 3 Days #6 capsule Continued Metoprolol [Lopressor] 25 mg PO BID LORazepam [Ativan] 1 mg PO BID PRN PRN Reason: Anxiety Testosterone 1 appl TP DAILY Valacyclovir HCl [Valtrex] 2,000 mg PO BID PRN PRN Reason: BLISTERS Ibuprofen [Motrin] 800 mg PO DAILY PRN PRN Reason: Pain Cyclobenzaprine HCl 5 mg PO TID PRN PRN Reason: Muscle Spasm HYDROcodone/Acet 7.5/325 mg [[place] 7.5-325 mg] 1 tab PO BID PRN 5 Days #10 tablet PRN Reason: Pain Home Medications: Cyclobenzaprine HCl 5 mg PO TID PRN 11/11/18 [History] Ibuprofen [Motrin] 800 mg PO DAILY PRN 11/11/18 [History] LORazepam [Ativan] 1 mg PO BID PRN 11/11/18 [History] Metoprolol [Lopressor] 25 mg PO BID 11/11/18 [History] Testosterone 1 appl TP DAILY 11/11/18 [History] Valacyclovir HCl [Valtrex] 2,000 mg PO BID PRN 11/11/18 [History] Cefdinir [Omnicef] 300 mg PO BID 3 Days #6 capsule 11/12/18 [Rx] HYDROcodone/Acet 7.5/325 mg [[place] 7.5-325 mg] 1 tab PO BID PRN 5 Days #10 tablet 11/12/18 [Rx] Hyoscyamine SL [Levsin Sl] 0.125 mg SL Q4HR PRN 4 Days #15 tab.subl 11/12/18 [Rx] Allergies/Adverse Reactions: Allergy/AdvReac Type Severity Reaction Status Date / Time morphine Allergy Hives Verified 11/11/18 19:54 Date of admission: 11/11/18 07:49 Primary care physician: Diogo Gregg CNP Consults: 11/11/18 08:06 Consult to Urology [CONS] Stat Consulting Provider: Urology Lisseth Reason for Consult: obstructive kidney stone 3 mm with pyelonephritis Call Completed: Yes - Constitutional Vitals: Temp Pulse Resp BP Pulse Ox 98.0 F 70 17 138/84 95 11/12/18 11:15 11/12/18 11:15 11/12/18 11:15 11/12/18 11:15 11/12/18 11:15 Exam: Vitals: Reviewed General: Alert and oriented x4. No acute distress Cardiovascular: RRR, normal S1 & S2, no rubs, murmurs or gallops. Lungs: CTA b/l, no wheezes or crackles. Abdomen: Soft, non-tender, no rigidity. Extremities: No deformity, no edema or tenderness, no joint swelling or clubbing. Neurological: Normal cognition and motor skills. Rest of the physical exam is non contributory - Patient Status Disposition: Home, Self-Care Condition: Good Functional capacity at discharge: independent ambulation Overall status at discharge: patient is back to baseline - Discharge Instructions Follow Up With: Diogo Gregg CNP [Primary Care Provider] - 11/19/18 8:00 am Esteban Johnson MD [Partnered Physician] - (An appointment has been requested. The office will contact you at home to schedule an appointment. ) - Diet and Activity Activity: resume usual activities as tolerated Diet: advance to your usual diet - VTE Documentation of Mechanical Device: Intermittent pneumatic compression device
[2018-11-16 03:08] LABS: Calculi Mass 14 mg
== END 2018-11-12 12:05 | disposition home or self-care (01) ==
LOC: 3BNU 04:08 → EMEROOARM 04:08 → 3BNU 09:51
PROVIDERS: ADMIT Internal Medicine; ATTEND Internal Medicine